=== PATIENT | male | born 1985 | race Caucasian/White ===

== ENCOUNTER 2021-08-06 07:09 | Emergency (ER) | payer OTHER ==
[~2021-08-06] VITALS: Ht 182.9 cm; Wt 79.4 kg
[2021-08-06 07:13] VITALS: BP 162/95
[2021-08-06] MEDS ORDERED: BACTRIM DS TAB1 EAC1 PO (07:23)
== END 2021-08-06 07:30 | disposition home or self-care (01) ==
LOC: M.ERS 07:09
DX: L73.9 Follicular disorder, unspecified (principal)

== ENCOUNTER 2021-09-16 02:11 | Emergency (ER) | payer OTHER ==
[~2021-09-16] VITALS: Ht 182.9 cm; Wt 68.0 kg
[~2021-09-16 02:11] MED LIST: BACTRIM DS TAB1 EAC1 PO
[2021-09-16 02:53] VITALS: BP 143/100
== END 2021-09-16 02:56 | disposition home or self-care (01) ==
LOC: M.ERS 02:11
DX: F19.10 Other psychoactive substance abuse, uncomplicated (principal); R44.2 Other hallucinations; Z88.8 Allergy status to other drugs, medicaments and biological substances